=== PATIENT | female | born 1950 | race Caucasian/White ===

== ENCOUNTER 2017-03-26 08:03 | Emergency (ER) | payer MEDICARE, OTHER ==
[~2017-03-26] VITALS: Ht 170.2 cm; Wt 71.3 kg
[~2017-03-26 08:03] MED LIST: DICL-86 PO; DIPH2%T PO; FISH1000 PO; FLON0.053; IMIT25TA PO; KETO10 PO; LORT7.5T3 PO; OYST500T77 PO; PSEU30TA PO; REDPOW2 PO; SUPETAB30 PO; TRIA.025%T TOP; TYLE500T PO
[2017-03-26 08:05] VITALS: BP 137/68; PULSE 76; RESP 15; TEMP 98.4; O2SAT 98
[2017-03-26] MEDS ORDERED: OMEG12003 PO (08:31)
[2017-03-26] MEDS ORDERED: SYNT112T PO (08:31)
[2017-03-26] MEDS ORDERED: IMIT25TA PO (08:31)
[2017-03-26] MEDS ORDERED: DIPH25CA PO (08:31)
[2017-03-26] MEDS ORDERED: LORA-520 PO (08:31)
[2017-03-26] MEDS ORDERED: REDCAP2 PO (08:31)
[2017-03-26] MEDS ORDERED: CALC1TAB12 PO (08:31)
[2017-03-26] MEDS ORDERED: DEXAMETHASONE SOD PHOS 4 MG/ML VIAL IM ONE (08:45)
[2017-03-26] MEDS ORDERED: AZIT250T3 PO (08:48)
[2017-03-26] MEDS ORDERED: CARB6.5S5 LEFT EAR (08:48)
--- NOTE | 2017-03-26 08:49 | PD ---
HPI Chief Complaint: ENT Complaint Time Seen by Provider: 08:19 Travel History International Travel<30 days: No Contact w/Intl Traveler<30days: No Traveled to known affect area: No History of Present Illness HPI 67-year-old female arrives with hoarse voice, occasional cough and sore throat worse with swallowing for a few days. She has tried apple [place] vinegar, honey and cinnamon at home. Typically that helps her symptoms however this time it did not. She tried Benadryl which did not help much and then made her feel very very sleepy. She's had no difficulty breathing. She reports occasionally these syndromes of sore throat and hoarse voice respond well to antibiotics. She also complains of environmental allergies, somewhat of a chronic issue, which may be contributory as well. 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 PFSH Past Medical History Arthritis: Yes Blood Disorders: No Anxiety: No Depression: Yes Cancer: No Cardiovascular Problems: No Diabetes: No Endocrine: No Glaucoma: No Genitourinary: No Hepatitis: No Hiatal Hernia: No Hypertension: No Immune Disorder: No Medical other: Yes (ARTHRITIS) Musculoskeletal: Yes Neurologic: Yes Psychiatric: No Reproductive: No Respiratory: No (POST NASAL DRIP) Migraines: Yes Thyroid Disease: Yes Influenza Vaccination: No ?: Not Past Surgical History Abdominal Surgery: No Cardiac Surgery: No Ear Surgery: No Endocrine Surgery: No Eye Surgery: No Genitourinary Surgery: No Gynecologic Surgery: Yes (HYSTERECTOMY-TUBAL LIGATION) Oral Surgery: No Pacemaker: No Thoracic Surgery: No Other Surgery: Yes (LEFT THYROIDECTOMY) Social History Alcohol Use: No Tobacco Use: No Substance Use: No Allergies-Medications (Allergen,Severity, Reaction): Coded Allergies: Penicillin (Verified Allergy, Severe, Anaphylaxis, 03/26/17) Reported Meds & Prescriptions Reported Meds & Active Scripts Active Reported Allergy (Loratadine) 10 Mg Tab 1 Tab PO DAILY Synthroid (Levothyroxine Sodium) 112 Mcg Tab 112 Mcg PO DAILY Imitrex (Sumatriptan Succinate) 25 Mg Tab 25 Mg PO ONCE PRN If a satisfactory response has not been obtained at 2 hours, a second dose may be administered Red Yeast Rice (Red Yeast Rice Extract) 600 Mg Cap 1 Cap PO DAILY [place]-3 & [place]-6 Fish Oi ([place] 3 Fatty Acids-[place] 6 FA) 1 Cap Cap 1 Cap PO DAILY Diphenhydramine (Diphenhydramine HCl) 25 Mg Cap 25 Mg PO HS PRN Calcium 500 +D (Calcium Carbonate-Cholecalciferol) 500-400 Mg-Unit Tab 2 Tab PO DAILY Review of Systems General / Constitutional: No: Fever, Chills HENT: Positive: Sore Throat, No: Headaches, Earache Physical Exam Narrative GENERAL: 76 yo F, WNWD, NAD SKIN: Warm and dry. HEAD: Normocephalic. EYES: No scleral icterus. No injection or drainage. ENT: Posterior oropharynx pink/intact. No tonsillar exudate/asymmetry/ hypertrophy. No soft palate deviation. Minimal cerumen in the R ext aud canal. Occlusion of L ext aud canal with cerumen. No mastoid tenderness either side. NECK: Supple, trachea midline. No JVD or lymphadenopathy. CARDIOVASCULAR: Regular rate and rhythm without murmurs, gallops, or rubs. RESPIRATORY: Breath sounds equal bilaterally. No accessory muscle use. Data Data Last Documented VS Vital Signs Date Time Temp Pulse Resp B/P Pulse Ox O2 Delivery O2 Flow Rate FiO2 03/26/17 08:05 98.4 76 15 137/68 98 VS reviewed [facility] Medical Decision Making Medical Screen Exam Complete: Yes Emergency Medical Condition: Yes Differential Diagnosis laryngitis, pna, pharyngitis bacterial or viral, allergies, gerd, bronchitis, post-nasal drip, [employer], RPA Narrative Course Infection is not entirely excluded though somewhat less likely. Pt is agreeable with plan for zpak and decadron shot. Diagnosis Primary Impression: Sorethroat Additional Impressions: Hoarseness of voice Excessive cerumen in left ear canal Referrals: Roni Saxena MD as needed Additional Instructions: You have a choice when it comes to health care, and we are glad that you chose [facility] Hopefully, we have met your expectations on today's visit. You are welcome to return to [facility] at any time, as we are committed to meeting the health care needs of our community. Med/Other Pt SpecificInfo: Prescription(s) given Scripts Carbamide Peroxide Otic Drops (Debrox Otic Drops)6.5% Soln5-10 Drop LEFT EAR BID PRN (Ear Wax Removal) 5 Days Ref 0 up to 4 days. Prov:Adam Cooper MD 03/26/17 Azithromycin 250 Mg Azp183 Mg PO DIRECTED #6 TAB Ref 0 Take 2 tabs (500 mg) on day 1 then 1 tab daily x 4 days. Prov:Adam Cooper MD 03/26/17 Disposition: 01 DISCHARGE HOME Condition: Stable Adam Cooper MD March 26, 2017 08:49
[2017-03-26] MEDS ORDERED: ALUMINUM/MAGNESIUM/SIMETH 30 ML CUP PO ONE (09:00)
[2017-03-26] MEDS ORDERED: LIDOCAINE VISCOUS 2% SOLN 15 ML UDC PO ONE (09:00)
== END 2017-03-26 09:18 | disposition home or self-care (01) ==
LOC: PHED 08:03
DX: J02.9 Acute pharyngitis, unspecified (principal); R49.0 Dysphonia; H61.22 Impacted cerumen, left ear; M19.90 Unspecified osteoarthritis, unspecified site; F32.9 Major depressive disorder, single episode, unspecified; E07.9 Disorder of thyroid, unspecified; Z88.0 Allergy status to penicillin; Z79.899 Other long term (current) drug therapy
CPT/HCPCS: 96372; 99284; J1100